=== PATIENT | male | born 1975 | race Caucasian/White ===

== ENCOUNTER 2016-11-23 11:27 | Emergency (ER) | payer MEDICAID ==
[2016-11-23] MEDS ORDERED: KETOROLAC 30 MG/ML VIAL (J1885) As Ordered ONE (12:25)
[2016-11-23] MEDS ORDERED: BACLOFEN 10 MG TAB As Ordered ONE (12:27)
--- NOTE | 2016-11-23 12:58 | EDDOCDS ---
Nurse's Notes [facility] Name: Gaurang Hardy Age: 41 yrs Sex: Male : 1975 Arrival Date: 11/23/2016 Time: 11:27 Bed PR Private MD: NO PRIMARY PHYSICIAN, . Diagnosis: Low back pain Presentation: 11/23 11:35 Presenting complaint: Patient states: Chronic back pain and pain increased over past 2 [facility] days. Acute neurological deficits are not present. Mechanism of Injury: No Mechanism of Injury. Adult Sepsis Screening: The patient does not have new or worsening altered mentation. Patient's respiratory rate is less than 22. Systolic blood pressure is greater than 100. Patient has a qSOFA score of 0- Negative Sepsis Screen. Suicide/Homicide risk assessment- the patient denies having any suicidal and/or homicidal ideations and does not present with any other emotional, behavioral or mental health complaints. Status: Patient is not a director professional services or dependent. Transition of care: patient was not received from another setting of care. 11:35 Acuity: LANG Level 4 [facility] 11:35 Method Of Arrival: Walkin/Carried/Asstd [facility] Triage Assessment: 11:36 General: Appears uncomfortable, Behavior is cooperative. Pain: Location: back Pain mcp currently is 10 out of 10 on a pain scale. HIV screening NA for this visit Offered previously. Neurological: No deficits noted. Respiratory: Airway is patent Respiratory effort is even, unlabored. Derm: Skin is pink, warm & dry. Musculoskeletal: Circulation, motion, and sensation intact. Historical: - Allergies: no known allergies; - Home Meds: 1. none - PMHx: Chronic Back pain; - PSHx: none; - Social history: Smoking status: Chewing Tobacco No barriers to communication noted, The patient speaks fluent Dominican. - Family history: Not pertinent. - : The pt / caregiver states he / she is not on anticoagulants. Home medication list is obtained from the patient. - Exposure Risk Screening:: None identified. Screenin:56 Screening information is obtained from the patient. Fall risk: No risks identified. mcp Assistance ADL's: requires no assistance with activities of daily living. Abuse/DV Screen: The patient / caregiver reports he/she is: not in a situation that causes fear, pain or injury. Nutritional screening: No deficits noted. Advance Directives: There is no active DNR order. home support is adequate. Assessment: 12:55 General: Appears uncomfortable, Behavior is cooperative. Pain: Location: back Pain mcp currently is 6 out of 10 on a pain scale. Neurological: No deficits noted. Respiratory: Airway is patent Respiratory effort is even, unlabored. Derm: Skin is pink, warm & dry. Vital Signs: 11:28 BP 152 / 86; Pulse 67; Resp 18; Temp 99.0(O); Pulse Ox 100% on R/A; Weight 86.18 kg elp (R); Height 6 ft. 2 in. (187.96 cm) (R); Pain 10/10; 12:46 BP 135 / 86; Pulse 72; Resp 16; Temp 98.6(T); Pulse Ox 98% on R/A; Pain 10/10; ar3 12:55 Pain 6/10; mcp 11:28 Body Mass Index 24.39 (86.18 kg, 187.96 cm) elp 12:46 patient on cell phone ar3 Vitals: 11:28 Log In Time: November 23, 2016 at 11:26. el ED Course: 11:28 Patient visited by Sujata Martin PCA. elp 11:28 NO PRIMARY PHYSICIAN, . is Private Physician. elp 11:28 Patient moved to Waiting elp 11:30 Patient visited by Sujata Martin PCA. elp 11:30 Patient moved to Pre RCE elp 11:35 Triage Initiated mcp 11:37 Patient visited by Sigrid Torres RN. [facility] 11:37 Patient moved to Triage 2 [facility] 11:47 Fran Weathers PA-C is [facility]. jk8 11:47 Florentino Chang MD is Attending Physician. jk8 11:47 Patient visited by Fran Weathers PA-C. jk8 12:13 [facility] Payment Agreement was scanned into [employer] and attached to record. mm15 12:24 Patient moved to PR1 / 25 ar3 12:47 Patient visited by Chastity Valle PCA. ar3 12:56 The patient / caregiver is instructed regarding the plan of care and ED course. Patient mcp has correct armband on for positive identification. Bed in low position. Call light in reach. 12:56 No IV's were initiated during this patient's visit. No procedures done that require mcp assistance. Administered Medications: 12:31 Drug: ketorolac 60 mg [ketorolac 30 mg/mL (1 mL) injection solution (2 mL)] Route: IM; rs3 Site: right gluteus; 12:55 Follow up: Pain 6/10 Adult; Response: Pain is decreased [facility] 12:31 Drug: Baclofen 10 mg [baclofen 10 mg tablet (1 tabs)] Route: PO; rs3 Order Results: There are currently no results for this order. Outcome: 12:23 Discharge ordered by Provider. jk8 12:56 Discharge Assessment: patient administered narcotics - no. The following High Risk mcp Discharge criteria are identified: None. Discharged to home ambulatory. Condition: stable. Discharge instructions given to patient, Instructed on discharge instructions, follow up and referral plans. medication usage, Demonstrated understanding of instructions, medications, Pt was receptive of discharge instructions/ teaching. Prescriptions given X 2. No special radiology studies were completed. Property sent home with patient. 12:57 Patient left the ED. mcp Signatures: Sigrid Torres RN RN mcp Soosairaj, Rosemary, RN RN rs3 Chastity Valle, INDUSTRIAL EQUIPMENT MECHANIC INDUSTRIAL EQUIPMENT MECHANIC ar3 Liya Junior mm15 Sujata Martin, INDUSTRIAL EQUIPMENT MECHANIC INDUSTRIAL EQUIPMENT MECHANIC elp Fran Weathers PA-C PA-C jk8 MTDD
--- NOTE | 2016-11-23 12:58 | EDDOCDS ---
Physician Documentation [facility] Name: Gaurang Hardy Age: 41 yrs Sex: Male : 1975 Arrival Date: 11/23/2016 Time: 11:27 Bed PR Private MD: NO PRIMARY PHYSICIAN, . Disposition: 11/23/16 12:23 Discharged to Home/Self Care. Impression: Low back pain. - Condition is Stable. - Prescriptions for naproxen 500 mg Oral tablet - take 1 tablet by ORAL route every 12 hours start tomorrow; 28 tablet. Baclofen 10 mg Oral Tablet - take 1 tablet by ORAL route 3 times per day; 20 tablet. - Medication Reconciliation, Local Pharmacy Hours form. - Follow up: Emergency Department; When: As needed; Reason: Worsening of conditions. Follow up: Private Physician; When: 2 - 3 days; Reason: Recheck today's complaints. - Problem is chronic. - Symptoms have worsened. Historical: - Allergies: no known allergies; - Home Meds: 1. none - PMHx: Chronic Back pain; - PSHx: none; - Social history: Smoking status: Chewing Tobacco No barriers to communication noted, The patient speaks fluent Turkmen. - Family history: Not pertinent. - : The pt / caregiver states he / she is not on anticoagulants. Home medication list is obtained from the patient. - Exposure Risk Screening:: None identified. Vital Signs: 11/23 11:28 BP 152 / 86; Pulse 67; Resp 18; Temp 99.0(O); Pulse Ox 100% on R/A; Weight 86.18 kg / elp 189.99 lbs (R); Height 6 ft. 2 in. (187.96 cm) (R); Pain 10/10; 12:46 BP 135 / 86; Pulse 72; Resp 16; Temp 98.6(T); Pulse Ox 98% on R/A; Pain 10/10; ar3 12:55 Pain 6/10; mcp 11:28 Body Mass Index 24.39 (86.18 kg, 187.96 cm) elp 12:46 patient on cell phone ar3 MDM: 12:05 Financial registration complete. mm15 12:13 [facility] Payment Agreement was scanned into [employer] and attached to record. mm15 12:22 ketorolac 60 mg IM once ordered. jk8 12:22 Baclofen 10 mg PO once ordered. jk8 Administered Medications: 12:31 Drug: ketorolac 60 mg [ketorolac 30 mg/mL (1 mL) injection solution (2 mL)] Route: IM; rs3 Site: right gluteus; 12:55 Follow up: Pain 04/18 Adult; Response: Pain is decreased [facility] 12:31 Drug: Baclofen 10 mg [baclofen 10 mg tablet (1 tabs)] Route: PO; rs3 Signatures: Sigrid Torres RN RN [facility] Liya Junior mm15 Fran Weathers PA-C PA-C jk8 Danielle Lamb RN rs3 The chart was reviewed and I authenticate all verbal orders and agree with the evaluation and treatment provided.Attachments: 12:13 [facility] Payment Agreement mm15 MTDD
--- NOTE | 2016-11-25 13:58 | EDDOCDS ---
Physician Documentation [facility] Name: Gaurang Hardy Age: 41 yrs Sex: Male : 1975 Arrival Date: 11/23/2016 Time: 11:27 Bed PR Private MD: NO PRIMARY PHYSICIAN, . Disposition: 11/23/16 12:23 Discharged to Home/Self Care. Impression: Low back pain. - Condition is Stable. - Prescriptions for naproxen 500 mg Oral tablet - take 1 tablet by ORAL route every 12 hours start tomorrow; 28 tablet. Baclofen 10 mg Oral Tablet - take 1 tablet by ORAL route 3 times per day; 20 tablet. - Medication Reconciliation, Local Pharmacy Hours form. - Follow up: Emergency Department; When: As needed; Reason: Worsening of conditions. Follow up: Private Physician; When: 2 - 3 days; Reason: Recheck today's complaints. - Problem is chronic. - Symptoms have worsened. Historical: - Allergies: no known allergies; - Home Meds: 1. none - PMHx: Chronic Back pain; - PSHx: none; - Social history: Smoking status: Chewing Tobacco No barriers to communication noted, The patient speaks fluent Arabic. - Family history: Not pertinent. - : The pt / caregiver states he / she is not on anticoagulants. Home medication list is obtained from the patient. - Exposure Risk Screening:: None identified. Vital Signs: 11/23 11:28 BP 152 / 86; Pulse 67; Resp 18; Temp 99.0(O); Pulse Ox 100% on R/A; Weight 86.18 kg / elp 189.99 lbs (R); Height 6 ft. 2 in. (187.96 cm) (R); Pain 10/10; 12:46 BP 135 / 86; Pulse 72; Resp 16; Temp 98.6(T); Pulse Ox 98% on R/A; Pain 10/10; ar3 12:55 Pain 6/10; mcp 11:28 Body Mass Index 24.39 (86.18 kg, 187.96 cm) elp 12:46 patient on cell phone ar3 MDM: 12:05 Financial registration complete. mm15 12:13 [facility] Payment Agreement was scanned into [employer] and attached to record. mm15 12:22 ketorolac 60 mg IM once ordered. jk8 12:22 Baclofen 10 mg PO once ordered. jk8 21:41 T-Sheet-- Draft Copy was scanned into [employer] and attached to record. klr Administered Medications: 12:31 Drug: ketorolac 60 mg [ketorolac 30 mg/mL (1 mL) injection solution (2 mL)] Route: IM; rs3 Site: right gluteus; 12:55 Follow up: Pain 04/18 Adult; Response: Pain is decreased [facility] 12:31 Drug: Baclofen 10 mg [baclofen 10 mg tablet (1 tabs)] Route: PO; rs3 Signatures: Sigrid Torres RN RN [facility] Liya Junior mm15 Fran Weathers PA-C PA-C jk8 Maryanne Pressley Rosemary RN rs3 The chart was reviewed and I authenticate all verbal orders and agree with the evaluation and treatment provided.Attachments: 12:13 [facility] Payment Agreement mm15 21:41 T-Sheet-- Draft Copy klr Chart Complete MTDD
--- NOTE | 2016-11-25 13:58 | EDDOCDS ---
Nurse's Notes [facility] Name: Gaurang Hardy Age: 41 yrs Sex: Male : 1975 Arrival Date: 11/23/2016 Time: 11:27 Bed PR Private MD: NO PRIMARY PHYSICIAN, . Diagnosis: Low back pain Presentation: 11/23 11:35 Presenting complaint: Patient states: Chronic back pain and pain increased over past 2 [facility] days. Acute neurological deficits are not present. Mechanism of Injury: No Mechanism of Injury. Adult Sepsis Screening: The patient does not have new or worsening altered mentation. Patient's respiratory rate is less than 22. Systolic blood pressure is greater than 100. Patient has a qSOFA score of 0- Negative Sepsis Screen. Suicide/Homicide risk assessment- the patient denies having any suicidal and/or homicidal ideations and does not present with any other emotional, behavioral or mental health complaints. Status: Patient is not a special agent secret service or dependent. Transition of care: patient was not received from another setting of care. 11:35 Acuity: LANG Level 4 [facility] 11:35 Method Of Arrival: Walkin/Carried/Asstd [facility] Triage Assessment: 11:36 General: Appears uncomfortable, Behavior is cooperative. Pain: Location: back Pain mcp currently is 10 out of 10 on a pain scale. HIV screening NA for this visit Offered previously. Neurological: No deficits noted. Respiratory: Airway is patent Respiratory effort is even, unlabored. Derm: Skin is pink, warm & dry. Musculoskeletal: Circulation, motion, and sensation intact. Historical: - Allergies: no known allergies; - Home Meds: 1. none - PMHx: Chronic Back pain; - PSHx: none; - Social history: Smoking status: Chewing Tobacco No barriers to communication noted, The patient speaks fluent Burkinan. - Family history: Not pertinent. - : The pt / caregiver states he / she is not on anticoagulants. Home medication list is obtained from the patient. - Exposure Risk Screening:: None identified. Screenin:56 Screening information is obtained from the patient. Fall risk: No risks identified. mcp Assistance ADL's: requires no assistance with activities of daily living. Abuse/DV Screen: The patient / caregiver reports he/she is: not in a situation that causes fear, pain or injury. Nutritional screening: No deficits noted. Advance Directives: There is no active DNR order. home support is adequate. Assessment: 12:55 General: Appears uncomfortable, Behavior is cooperative. Pain: Location: back Pain mcp currently is 6 out of 10 on a pain scale. Neurological: No deficits noted. Respiratory: Airway is patent Respiratory effort is even, unlabored. Derm: Skin is pink, warm & dry. Vital Signs: 11:28 BP 152 / 86; Pulse 67; Resp 18; Temp 99.0(O); Pulse Ox 100% on R/A; Weight 86.18 kg elp (R); Height 6 ft. 2 in. (187.96 cm) (R); Pain 10/10; 12:46 BP 135 / 86; Pulse 72; Resp 16; Temp 98.6(T); Pulse Ox 98% on R/A; Pain 10/10; ar3 12:55 Pain 6/10; mcp 11:28 Body Mass Index 24.39 (86.18 kg, 187.96 cm) elp 12:46 patient on cell phone ar3 Vitals: 11:28 Log In Time: November 23, 2016 at 11:26. el ED Course: 11:28 Patient visited by Sujata Martin PCA. elp 11:28 NO PRIMARY PHYSICIAN, . is Private Physician. elp 11:28 Patient moved to Waiting elp 11:30 Patient visited by Sujata Martin PCA. elp 11:30 Patient moved to Pre RCE elp 11:35 Triage Initiated mcp 11:37 Patient visited by Sigrid Torres RN. [facility] 11:37 Patient moved to Triage 2 [facility] 11:47 Fran Weathers PA-C is [facility]. jk8 11:47 Florentino Chang MD is Attending Physician. jk8 11:47 Patient visited by Fran Weathers PA-C. jk8 12:13 [facility] Payment Agreement was scanned into [employer] and attached to record. mm15 12:24 Patient moved to PR1 / 25 ar3 12:47 Patient visited by Chastity Valle PCA. ar3 12:56 The patient / caregiver is instructed regarding the plan of care and ED course. Patient mcp has correct armband on for positive identification. Bed in low position. Call light in reach. 12:56 No IV's were initiated during this patient's visit. No procedures done that require mcp assistance. 21:41 T-Sheet-- Draft Copy was scanned into [employer] and attached to record. kimmie Administered Medications: 12:31 Drug: ketorolac 60 mg [ketorolac 30 mg/mL (1 mL) injection solution (2 mL)] Route: IM; rs3 Site: right gluteus; 12:55 Follow up: Pain 6/10 Adult; Response: Pain is decreased [facility] 12:31 Drug: Baclofen 10 mg [baclofen 10 mg tablet (1 tabs)] Route: PO; rs3 Order Results: There are currently no results for this order. Outcome: 12:23 Discharge ordered by Provider. jk8 12:56 Discharge Assessment: patient administered narcotics - no. The following High Risk [facility] Discharge criteria are identified: None. Discharged to home ambulatory. Condition: stable. Discharge instructions given to patient, Instructed on discharge instructions, follow up and referral plans. medication usage, Demonstrated understanding of instructions, medications, Pt was receptive of discharge instructions/ teaching. Prescriptions given X 2. No special radiology studies were completed. Property sent home with patient. 12:57 Patient left the ED. mcp Signatures: Sigrid Torres RN RN Danielle De Dios RN RN rs3 Chastity Valle, OUTDOOR STUDIES PROFESSOR OUTDOOR STUDIES PROFESSOR ar3 Liya Junior mm15 Sujata Martin, OUTDOOR STUDIES PROFESSOR OUTDOOR STUDIES PROFESSOR elp Fran Weathers PA-C PA-C jk8 Maryanne Pressley Chart Complete MTDD
--- NOTE | 2016-11-25 13:58 | EDDOCDS ---
Physician Documentation [facility] Name: Gaurang Hardy Age: 41 yrs Sex: Male : 1975 Arrival Date: 11/23/2016 Time: 11:27 Bed PR Private MD: NO PRIMARY PHYSICIAN, . Disposition: 11/23/16 12:23 Discharged to Home/Self Care. Impression: Low back pain. - Condition is Stable. - Prescriptions for naproxen 500 mg Oral tablet - take 1 tablet by ORAL route every 12 hours start tomorrow; 28 tablet. Baclofen 10 mg Oral Tablet - take 1 tablet by ORAL route 3 times per day; 20 tablet. - Medication Reconciliation, Local Pharmacy Hours form. - Follow up: Emergency Department; When: As needed; Reason: Worsening of conditions. Follow up: Private Physician; When: 2 - 3 days; Reason: Recheck today's complaints. - Problem is chronic. - Symptoms have worsened. Historical: - Allergies: no known allergies; - Home Meds: 1. none - PMHx: Chronic Back pain; - PSHx: none; - Social history: Smoking status: Chewing Tobacco No barriers to communication noted, The patient speaks fluent Korean. - Family history: Not pertinent. - : The pt / caregiver states he / she is not on anticoagulants. Home medication list is obtained from the patient. - Exposure Risk Screening:: None identified. Vital Signs: 11/23 11:28 BP 152 / 86; Pulse 67; Resp 18; Temp 99.0(O); Pulse Ox 100% on R/A; Weight 86.18 kg / elp 189.99 lbs (R); Height 6 ft. 2 in. (187.96 cm) (R); Pain 10/10; 12:46 BP 135 / 86; Pulse 72; Resp 16; Temp 98.6(T); Pulse Ox 98% on R/A; Pain 10/10; ar3 12:55 Pain 6/10; mcp 11:28 Body Mass Index 24.39 (86.18 kg, 187.96 cm) elp 12:46 patient on cell phone ar3 MDM: 12:05 Financial registration complete. mm15 12:13 [facility] Payment Agreement was scanned into [employer] and attached to record. mm15 12:22 ketorolac 60 mg IM once ordered. jk8 12:22 Baclofen 10 mg PO once ordered. jk8 21:41 T-Sheet-- Draft Copy was scanned into [employer] and attached to record. klr Administered Medications: 12:31 Drug: ketorolac 60 mg [ketorolac 30 mg/mL (1 mL) injection solution (2 mL)] Route: IM; rs3 Site: right gluteus; 12:55 Follow up: Pain 04/18 Adult; Response: Pain is decreased [facility] 12:31 Drug: Baclofen 10 mg [baclofen 10 mg tablet (1 tabs)] Route: PO; rs3 Signatures: Sigrid Torres RN RN [facility] Liya Junior mm15 Fran Weathers PA-C PA-C jk8 Maryanne Pressley Rosemary RN rs3 The chart was reviewed and I authenticate all verbal orders and agree with the evaluation and treatment provided.Attachments: 12:13 [facility] Payment Agreement mm15 21:41 T-Sheet-- Draft Copy klr Chart Complete MTDD
== END 2016-11-23 12:57 | disposition home or self-care (01) ==
LOC: M ED 11:27
DX: M54.9 Dorsalgia, unspecified (principal); F17.220 Nicotine dependence, chewing tobacco, uncomplicated
CPT/HCPCS: 96372; 99283; J1885

== ENCOUNTER → 2018-01-26 | Outpatient (REF) | payer OTHER ==
[2018-01-26 15:59] LABS: ALBUMIN/GLOBULIN RATIO 1.21 (1.00-1.93); ALKALINE PHOSPHATASE 65 U/L (45-117); ALT/SGPT 23 U/L (12-78); ANION GAP 6 MEQ/L (8-16); AST/SGOT 11 U/L (7-37); BILIRUBIN,TOTAL 0.3 MG/DL (0.2-1.0); BLOOD UREA NITROGEN 16 MG/DL (7-18); CALCIUM LEVEL 8.8 MG/DL (8.5-10.1); CARBON DIOXIDE LEVEL 32 MEQ/L (21-32); CHLORIDE LEVEL 103 MEQ/L (98-107); CREATININE FOR GFR 0.68 MG/DL (0.70-1.30); FREE T4 0.64 NG/DL (0.76-1.46); GLOMERULAR FILTRATION RATE > 60.0 (>60); GLUCOSE, FASTING 63 MG/DL (70-100); POTASSIUM SERUM 4.4 MEQ/L (3.5-5.1); SODIUM LEVEL 141 MEQ/L (136-145); TOTAL PROTEIN 7.3 GM/DL (6.4-8.2)
== END ==
LOC: M LAB REF 15:10
DX: R35.8 Other polyuria (principal)
CPT/HCPCS: 84443

== ENCOUNTER → 2018-03-09 | Outpatient (REF) | payer OTHER | LOC: M LAB REF 17:21 | DX: E07.9 Disorder of thyroid, unspecified (principal) ==